=== PATIENT | male | born 1980 | race Two or more races ===

== ENCOUNTER 2022-12-05 09:51 | Emergency (ER) | payer MEDICAID, OTHER ==
[~2022-12-05] VITALS: Ht 167.6 cm; Wt 72.7 kg
[2022-12-05 11:02] VITALS: BP 144/89
[2022-12-05] MEDS ORDERED: cefTRIAXone SOD 1,000 MG VL IM ONE (11:45)
[2022-12-05] MEDS ORDERED: IBUPROFEN 800 MG TAB PO ONE (11:45)
[2022-12-05] MEDS ORDERED: IBUP800T27 PO (12:07)
[2022-12-05] MEDS ORDERED: BACDST PO (12:07)
== END 2022-12-05 12:11 | disposition home or self-care (01) ==
LOC: ER 09:57
DX: S00.561A Insect bite (nonvenomous) of lip, initial encounter (principal); W57.XXXA Bitten or stung by nonvenomous insect and other nonvenomous arthropods, initial encounter; Y93.89 Activity, other specified; Y92.89 Other specified places as the place of occurrence of the external cause; Y99.8 Other external cause status
CPT/HCPCS: 96372; 99283; J0696

== ENCOUNTER 2022-12-07 11:21 | Emergency (ER) | payer MEDICAID ==
[~2022-12-07 11:21] MED LIST: BACDST PO; IBUP800T27 PO
[2022-12-07 11:35] VITALS: BP 130/80
== END 2022-12-07 16:41 | disposition left against medical advice (07) ==
LOC: ER 11:21
DX: L98.9 Disorder of the skin and subcutaneous tissue, unspecified (principal); Z53.21 Procedure and treatment not carried out due to patient leaving prior to being seen by health care provider